=== PATIENT | female | born 1960 | race Caucasian/White ===

== ENCOUNTER 2023-04-14 05:55 | Emergency (ER) | payer BC, SELFPAY ==
[2023-04-14 05:59] VITALS: BP 188/88
[2023-04-14 06:39] VITALS: BMI 35.7
--- NOTE | 2023-04-14 07:26 | ED.GENMED ---
History of Present Illness
General
Chief Complaint: Musculo-Skeletal Complaint
Source: patient
Exam Limitations: none
Time Seen by Provider: 04/14/23 07:01
Nursing documentation reviewed up to this point in time: agreed with
Travel History
Have you had any contact with someone who has COVID-19?: No
Do you have any symptoms of coronavirus? Fever > 100 degrees, chills, cough, shortness of breath, sore throat, loss of taste or smell, muscle aches, or headache?: No
History of Present Illness
History of Present Illness:
63-year-old female present with history of A-fib currently on Eliquis, hypertension presenting to the emergency department today with concerns of left-sided knee discomfort over the past 4 days or so. Has had previous right-sided meniscus injury
and has been limping and favoring her left side. She believes this is what has caused ongoing discomfort now with some swelling to the left knee. Denies redness warmth denies systemic symptoms fevers nausea vomiting.
Past History
Past History
ED Past Medical History: Arrthythmia (Atrial fibrillation), HTN, Hypercholesterolemia and Other (Palpitations)
ED Past Surgical History: Appendectomy and
Social History
Tobacco: Non-smoker
Alcohol: None
Drug: None
Personal:
Living: with family
Employment: Employed
Family History
Family History: CAD
Review of Systems
Review of Systems
Allergies reviewed?: Yes
All Other Systems: ROS reviewed and negative except as documented in HPI and ROS
Phy Exam
Physical Exam
Physical Exam:
GENERAL: Alert , in no apparent distress
EYE: pupils equal and reactive
NECK: Supple, no significant adenopathy.
ENT: o/p clr, mmm.
CARDIAC: Regular rate and rhythm .
LUNGS: Clear breath sounds bilaterally, no acute respiratory distress, no wheezes/rales/rhonchi
ABDOMEN: Soft, without focal tenderness, no r/g, no cvat
NEUROLOGICAL: Alert and oriented, no focal neuro deficits
SKIN: Warm and dry, skin intact.
MUSCULOSKELETAL: Mild swelling to the left knee mainly prepatellar. Good range of motion to at least 60 degrees of flexion able to fully extend. No redness no warmth no distal abnormalities normal ankle examination able to move the hip normally,
well perfused.
PSYCH: Normal and appropriate interaction.
Course
Orders/Labs/Results
Orders:
Orders
04/14/23 07:26
Ice Pack-Treatment DIRECTED
Location: left knee pain
CR Knee - Left 4 Or More View* Urgent
Comment:
Reason For Exam: knee pain
04/14/23 09:14
Brad Wrap Left-Treatment ONCE
Walker [Treatment- Walker] ONCE
Vital Signs
Initial and Last Documented VS:
Initial Vital Signs
Temp Pulse Resp Pulse Ox
98.4 F 72 22 98
04/14/23 05:57 04/14/23 05:57 04/14/23 05:57 04/14/23 05:57
Last Documented Vital Signs
Temp Pulse Resp BP Pulse Ox
98.4 F 68 16 136/69 100
04/14/23 05:57 04/14/23 07:30 04/14/23 07:30 04/14/23 07:30 04/14/23 07:30
MDM/Problems Addressed
MDM/Problems Addressed:
63-year-old female presenting to the emergency department today with concerns of left-sided knee pain over the past few days. She claims that this is likely due to to her favoring her leg due to a known right-sided meniscus injury. She does see an
orthopedic doctor for this. Having trouble ambulating also trouble sleeping secondary to pain. She has been taking Tylenol at home for this without relief. No evidence of infection seems to be a mechanical knee discomfort likely from favoring the
left side. X-ray showing severe arthritis. Patient was recommended to RICE and otherwise follow-up with orthopedics. Return precautions given. Also was given a walker to help facilitate ambulation.
*Critical Care Note
Total Time (30-74mins, 75-104mins- exclusive of procedures): Not Applicable
ED Attending Note
-
Portions of this chart may have been created with voice recognition software.� Occasional wrong word or��sound alike� substitutions may have occurred due to the inherent limitations of voice recognition software.
Discharge Plan
Departure
Patient Disposition: Home (Routine Discharge)
Date of Disposition: 04/14/23
Time of Disposition: 09:15
Patient with high blood pressure during this ER visit?: No
Condition: Good
Covid-19: Not Applicable
Discharge Problem:
Osteoarthritis of left knee
Instructions: Knee Sprain (DC)
Prescriptions:
New
oxycodone 5 mg tablet
5 mg PO Q8H PRN (Reason: Pain) Qty: 7 0RF
No Action
sotalol 80 MG tablet
120 mg PO BID
alprazolam 0.25 MG tablet
0.25 mg PO PRN PRN (Reason: anxiety)
diltiazem HCl [Cartia XT] 180 MG capsule,extended release 24hr
180 mg PO DAILY
diltiazem HCl 60 MG tablet
60 mg PO BID PRN (Reason: afib)
losartan 50 MG tablet
100 mg PO DAILY
ascorbic acid (vitamin C) [Vitamin C] 1,000 MG tablet
1,000 mg PO DAILY
omega 5-dti-hyv-fish oil [Fish Oil] 1 EACH capsule
1 ea PO DAILY
Eliquis 5 MG tablet
5 mg PO BID Qty: 60 0RF
Referrals:
Javier Meredith DO [Family Provider] -
Activity Restrictions/Additional Instructions:
You came to the emergency department today with concerns of left-sided knee discomfort. Here you are found to have significant arthritis on x-ray. Please rest ice compress and elevate over the next few days with hopeful improvement of symptoms.
Please use the walker as needed to help offload weight. Otherwise please follow-up closely with your orthopedic doctor. Return to the emergency department for any worsening, new or concerning symptoms.
Interventions
Interventions:
*Risk Screen - Suicide Last Done: 04/14/23 05:57
*General Assessment Last Done: 04/14/23 06:40
*Neglect/Abuse Screening Last Done: 04/14/23 05:57
ED- Fall Risk Assessment Last Done: 04/14/23 06:41
*ED COVID-19 Vaccine History Last Done: 04/14/23 06:39
ED-Musculoskeletal Assessment Last Done: 04/14/23 06:41
[2023-04-14 07:30] VITALS: BP 136/69
[2023-04-14 09:39] VITALS: BP 141/77
== END 2023-04-14 09:47 | disposition home or self-care (01) ==
LOC: EMR 05:55
PROVIDERS: EMERGENCY PHYSICIAN Emergency Medicine; FAMILY PHYSICIAN Family Medicine
DX: M17.12 Unilateral primary osteoarthritis, left knee (principal); I48.91 Unspecified atrial fibrillation; Z79.01 Long term (current) use of anticoagulants; I10 Essential (primary) hypertension
CPT/HCPCS: 99283; 73564

== ENCOUNTER 2024-01-13 04:34 | Emergency (ER) | payer SELFPAY ==
[2024-01-13 04:37] VITALS: BP 145/75
[2024-01-13 04:41] VITALS: BP 145/75
[2024-01-13 05:00] VITALS: BP 122/74
--- NOTE | 2024-01-13 05:26 | ED.GENMED ---
History of Present Illness
General
Chief Complaint: Flank Pain
Source: patient
Exam Limitations: none
Time Seen by Provider: 01/13/24 04:57
Nursing documentation reviewed up to this point in time: agreed with
History of Present Illness
History of Present Illness:
Patient currently receiving physical therapy secondary to herniated disc at the level of L5, presents to ED secondary to sudden onset of left mid back/flank pain over the past 3 days. Denies direct trauma. Denies nausea or vomiting. Denies fever
or chills. Denies coughing. Denies shortness of breath. Pain is worse with movement and with inspiration. Of note, patient who has history of paroxysmal atrial fibrillation on Eliquis, had oral surgery last week. Eliquis was withheld for 2
days, but restarted for 4 days before onset of her symptoms. Denies leg pain or swelling. Denies recent travel. Denies previous history of similar symptoms. Patient states that she had 1 episode of kidney stone 25 years ago, but states that her
symptoms are different
Past History
Past History
ED Past Medical History: Arrthythmia (Atrial fibrillation), HTN, Hypercholesterolemia and Other (Palpitations)
ED Past Surgical History: Appendectomy and
Social History
Tobacco: Non-smoker
Alcohol: None
Drug: None
Personal:
Living: with family
Employment: Employed
Family History
Family History: CAD
Review of Systems
Review of Systems
Allergies reviewed?: Yes
All Other Systems: ROS reviewed and negative except as documented in HPI and ROS
Constitutional: Reports no symptoms
Respiratory: Reports no symptoms
Cardiac: Reports no symptoms
ABD/GI: Reports no symptoms; Denies nausea, vomiting or diarrhea
: Reports flank pain
Musculoskeletal: Reports back pain
Skin: Reports no symptoms
Neurological: Reports no symptoms
Phy Exam
Physical Exam
Physical Exam:
Physical Exam
General: mild painful distress, not acutely ill. afebrile
Head: nc/at. eomi
Neck: supple. no meningeal signs.
Heart: s1/s2 regular rate and rhythm, no murmur. equal radial pulses.
Lungs: no acute respiratory distress. clear bilaterally
Abdomen: normal bowel sounds. not tender.
Back: mild left midback tenderness to palpation at level of T7-8, without midline tenderness/deformity
Neuro: alert and oriented. no focal neurological deficits
Skin: no rash
Psychiatric: well kept. interactive and cooperative
Extremities: no edema. no calf tenderness.
Course
Orders/Labs/Results
Orders:
Orders
01/13/24 05:13
Morphine Sulfate 2 mg IV NOW STA
CR Chest - 2 Views Urgent
Comment:
Reason For Exam: left mid/upper back pain
01/13/24 05:37
Complete Blood Count/With Diff Urgent
Comprehensive Metabolic Panel Urgent
D-Dimer Urgent
Magnesium Urgent
01/13/24 06:15
Urinalysis Reflex To Culture Urgent
Date Specimen was Collected: 01/13/24
Time Specimen was Collected: 06:14
01/13/24 06:35
Dexamethasone Sod Phosphate [Decadron] 10 mg IV NOW STA
Abnormal Lab Results
01/13/24
05:37
RBC 4.19 L 10^6/uL
(4.20-5.40)
Hct 36.7 L %
(37.0-47.0)
Neutrophils % 77.2 H %
(42.2-75.2)
Lymphocytes % 15.2 L %
(20.5-51.1)
Glucose 135 H mg/dl
(70-99)
01/13/24 05:37
01/13/24 05:37
Vital Signs
Initial and Last Documented VS:
Initial Vital Signs
Temp Pulse Resp BP Pulse Ox
98.2 F 64 16 145/75 96
01/13/24 04:37 01/13/24 04:37 01/13/24 04:37 01/13/24 04:37 01/13/24 04:37
Last Documented Vital Signs
Temp Pulse Resp BP Pulse Ox
98.2 F 57 16 141/67 98
01/13/24 04:37 01/13/24 07:01 01/13/24 07:01 01/13/24 07:01 01/13/24 07:01
MDM/Problems Addressed
MDM/Problems Addressed:
Patient with an unremarkable workup in ED, including blood work, urinalysis, and chest x-ray. History and exam consistent with reproducible left mid/upper back pain, with associated spasm, likely secondary to musculoskeletal etiology. D-dimer
negative. Patient also reports improvement in symptoms subjectively, with treatment via pain medication. As such, patient will be given 1 dose of steroid, i.e. Decadron IV prior to discharge, along with prescription for short course of pain
medication as well as muscle relaxant. Advised to follow-up with PCP for reevaluation or return to ED with worsening symptoms. Patient expresses understanding at time of discharge.
*Critical Care Note
Total Time (30-74mins, 75-104mins- exclusive of procedures): Not Applicable
ED Attending Note
-
Portions of this chart may have been created with voice recognition software.� Occasional wrong word or��sound alike� substitutions may have occurred due to the inherent limitations of voice recognition software.
Discharge Plan
Departure
Patient Disposition: Home (Routine Discharge)
Date of Disposition: 01/13/24
Time of Disposition: 06:53
Patient with high blood pressure during this ER visit?: Yes
Discharge Problem:
Back pain
Instructions: Upper Back Pain (DC), Exercises for Upper Back Pain
Prescriptions:
New
oxycodone-acetaminophen [Percocet] 5-325 mg Tablet
1 tab PO Q6HPRN PRN (Reason: pain) Qty: 12 0RF
diazepam [Valium] 2 mg tablet
2 mg PO TID PRN (Reason: muscle spasm) Qty: 7 0RF
No Action
sotalol 80 MG tablet
120 mg PO BID
alprazolam 0.25 MG tablet
0.25 mg PO PRN PRN (Reason: anxiety)
diltiazem HCl [Cartia XT] 180 MG capsule,extended release 24hr
180 mg PO DAILY
diltiazem HCl 60 MG tablet
60 mg PO BID PRN (Reason: afib)
losartan 50 MG tablet
100 mg PO DAILY
ascorbic acid (vitamin C) [Vitamin C] 1,000 MG tablet
1,000 mg PO DAILY
omega 4-wpm-rpj-fish oil [Fish Oil] 1 EACH capsule
1 ea PO DAILY
Eliquis 5 MG tablet
5 mg PO BID Qty: 60 0RF
Referrals:
UNKNOWN - PT DOES,NOT KNOW [Family Provider] -
Activity Restrictions/Additional Instructions:
As discussed, please follow-up with your primary care physician for reevaluation. Your prescriptions have been sent electronically to [facility] pharmacy in [place].
Interventions
Interventions:
*Risk Screen - Suicide Last Done: 01/13/24 04:37
*General Assessment Last Done: 01/13/24 04:37
*Neglect/Abuse Screening Last Done: 01/13/24 04:37
ED- Fall Risk Assessment Last Done: 01/13/24 04:37
*ED COVID-19 Vaccine History Last Done: 01/13/24 04:37
*Nursing Disposition Last Done: 01/13/24 07:33
ZB-Tsnsrd-Tvgixaeovp Assessment Last Done: 01/13/24 04:51
ED-Female Genitourinary Assessment Last Done: 01/13/24 04:51
Discharge Date and Time
Discharge Date/Time: 01/13/24 07:34
Print Language: CHADIAN
[2024-01-13] MEDS: MORPHINE SULFATE 2 MG IV (05:42)
[2024-01-13 05:45] LABS: % Basophils 0.5 % (0-2); % Eosinophils 0.9 % (0-6); % Immature Granulocytes 0.3 % (0-0.5); % Lymphocytes 15.2 % (20.5-51.1); % Monocytes 5.9 % (1.7-9.3); % Neutrophils 77.2 % (42.2-75.2); Absolute Eosinophils 0.1 10^3/uL (0-0.7); Absolute Lymphocytes 1.2 10^3/uL (1.2-3.4); Absolute Monocytes 0.5 10^3/uL (0.1-0.6); Hematocrit 36.7 % (37.0-47.0); Hemoglobin 12.5 g/dL (12.0-16.0); Mean Corp Hgb Conc. 34.1 g/dL (33.0-37.0); Mean Corpuscular Hgb 29.8 pg (27.0-31.0); Mean Corpuscular Volume 87.6 fL (81.0-99.0); Mean Platelet Volume 9.4 fL (7.4-10.4); Nucleated Red Blood Cells % 0 %; Platelet Count 312 10^3/uL (130-400); Red Blood Cell Count 4.19 10^6/uL (4.20-5.40); Red Cell Dist. Width 12.5 % (11.5-14.5); White Blood Cell Count 7.8 10^3/uL (4.8-10.8)
[2024-01-13 05:56] LABS: ALT (SGPT) 16 U/L (0-35); AST (SGOT) 19 U/L (14-36); Albumin 4.1 g/dl (3.5-5.0); Alkaline Phosphatase 71 U/L (38-126); Blood Urea Nitrogen 16 mg/dl (7-17); Carbon Dioxide 28 mmol/L (22-30); Chloride 102 mmol/L (98-107); Glucose 135 mg/dl (70-99); Magnesium 1.8 mg/dl (1.6-2.3); Potassium 4.3 mmol/L (3.5-5.1); Sodium 143 mmol/L (135-145); Total Bilirubin 0.5 mg/dl (0.2-1.3); Total Protein 6.5 g/dl (6.3-8.2); eGFR > 60.00
[2024-01-13 06:14] VITALS: BP 141/64
[2024-01-13 06:30] LABS: D-Dimer 0.34 ug/mlFEU (0.00-0.50)
[2024-01-13 06:49] LABS: Urine Albumin Negative (Neg - Trace); Urine Bilirubin Negative (Negative); Urine Character Clear (Clear); Urine Color Yellow; Urine Glucose Negative (Negative); Urine Ketone Negative (Negative); Urine Leukocyte Negative (Negative); Urine Nitrite Negative (Negative); Urine Occult Blood Negative (Negative); Urine Urobilinogen Negative (Neg - 1+)
[2024-01-13] MEDS: DECADRON 10 MG IV (07:00)
[2024-01-13 07:01] VITALS: BP 141/67
== END 2024-01-13 07:34 | disposition home or self-care (01) ==
LOC: EMR 04:34
PROVIDERS: EMERGENCY PHYSICIAN Emergency Medicine
DX: M54.9 Dorsalgia, unspecified (principal); I48.0 Paroxysmal atrial fibrillation; I48.91 Unspecified atrial fibrillation; I10 Essential (primary) hypertension; E78.00 Pure hypercholesterolemia, unspecified; Z79.01 Long term (current) use of anticoagulants; Z82.49 Family history of ischemic heart disease and other diseases of the circulatory system; Z87.442 Personal history of urinary calculi; Z90.49 Acquired absence of other specified parts of digestive tract
CPT/HCPCS: 99283; 96374; 96375; 71046; 80053; 81003; 83735; 85025; 85379

== ENCOUNTER 2024-03-11 22:35 | Observation (INO) | payer SELFPAY ==
[2024-03-11 18:55] VITALS: BP 154/70
[2024-03-11 19:00] VITALS: BP 139/57
[2024-03-11 19:01] VITALS: BMI 32.2
[2024-03-11] MEDS: MORPHINE SULFATE 4 MG IV (19:22)
[2024-03-11 19:30] LABS: % Basophils 0.4 % (0-2); % Eosinophils 0.9 % (0-6); % Immature Granulocytes 0.3 % (0-0.5); % Lymphocytes 15.6 % (20.5-51.1); % Monocytes 5.4 % (1.7-9.3); % Neutrophils 77.4 % (42.2-75.2); Absolute Eosinophils 0.1 10^3/uL (0-0.7); Absolute Lymphocytes 1.5 10^3/uL (1.2-3.4); Absolute Monocytes 0.5 10^3/uL (0.1-0.6); Absolute Neutrophils 7.2 10^3/uL (1.4-6.5); Hematocrit 38.8 % (37.0-47.0); Hemoglobin 13.4 g/dL (12.0-16.0); Mean Corp Hgb Conc. 34.5 g/dL (33.0-37.0); Mean Corpuscular Hgb 29.6 pg (27.0-31.0); Mean Corpuscular Volume 85.8 fL (81.0-99.0); Mean Platelet Volume 9.5 fL (7.4-10.4); Nucleated Red Blood Cells % 0 %; Platelet Count 304 10^3/uL (130-400); Red Blood Cell Count 4.52 10^6/uL (4.20-5.40); Red Cell Dist. Width 11.9 % (11.5-14.5); White Blood Cell Count 9.3 10^3/uL (4.8-10.8)
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
[2024-03-11 19:46] LABS: Blood Urea Nitrogen 23 mg/dl (7-17); Calcium 9.5 mg/dl (8.4-10.2); Carbon Dioxide 30 mmol/L (22-30); Chloride 99 mmol/L (98-107); Estimated Creatinine Clearance 82 ml/min; Glucose 128 mg/dl (70-99); Potassium 3.9 mmol/L (3.5-5.1); Sodium 139 mmol/L (135-145); eGFR > 60.00
[2024-03-11 20:36] VITALS: BP 136/67
[2024-03-11 20:59] LABS: Erythrocyte Sed Rate 20 mm/hour (0-20)
[2024-03-11 21:00] VITALS: BP 133/63
--- NOTE | 2024-03-11 21:17 | W.PN.UPDATE ---
Update Note
Progress Note Update
This is an addendum to H&P written by [employer] Marcy Paz
I saw and examined the patient.
The [employer]'s note was reviewed and I agree with the note.
Comment:
Ms. Nery Romero is a 63 yo woman with hx atrial fibrillation, HTN, anxiety presents to the ER with acute right knee pain, unable to ambulate. Patient lives alone.
Triage VS: T 98.1, P 66, BP 139/57, SpO2 98%
LABS: WBC 9.3, Hg 13.4, PLT 304, Na 139, K+ 3.9, Cl 99, BUN 23, Cr 0.7, Glucose 128, ESR 20; CRP 5
On exam patient is anxious, Chest clear, CV: S1, S2. She has pain with active and passive flexion of her right knee. No erythema, warmth or swelling surrounding knee.
Femur X-Ray
Tibia/Fibula X-Ray
Knee X-Ray
IMPRESSION:
No acute fracture or dislocation. Joint spaces are well-maintained. Soft tissues are grossly unremarkable. Mild to moderate degenerative changes of the right hip and knee. Small suprapatellar knee joint effusion. Soft tissues are grossly
unremarkable.
Acute Right knee pain
-patient describes pain extending above and below
-above imaging without acute fracture, may be related to arthritis
-will obtain hip x-ray in case there is referred pain
-lidocaine patch, oxy PRN
-PT/OT
-team to consider touching base with ortho tomorrow if pain persists
Atrial fibrillation
-[employer] home regimen
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
[2024-03-11] MEDS: FLUSH (NSS) 1 FLUSH IV (21:49)
[2024-03-11 22:00] VITALS: BP 129/59
[2024-03-11 22:55] VITALS: BP 146/66
--- NOTE | 2024-03-11 23:15 | PTCARENOTE ---
Addendum entered by Jodee Martel RN 03/12/24 00:46:
Patient takes Cozaar 50 at home. Changed in home med list. Updated MEGAN Martinez.
Addendum entered by Jodee Martel RN 03/12/24 00:40:
Medicated with oxycodone for knee pain/ Tylenol for GILLIS. Explained to patient that we have to Head to toe skin check on admission. Patient is still refusing at this time.
Original Note:
Received patient from ER. stable vitals. c/o headache/ right knee pain. Refused to be turned as patient having severe knee pain. also patient is upset that' room mate coughing/ worried about infection'. [employer] made aware that patient wants a
different room. Reassured patient. Given mask/ earplugs as per request. Assessment done. POC reviewed with patient
[2024-03-11 23:20] VITALS: BMI 32.2
[2024-03-11] MEDS: TYLENOL 650 MG PO (23:50)
[2024-03-11] MEDS: ROXICODONE 5 MG PO (23:50)
[2024-03-12] MEDS: ROXICODONE 5 MG PO (03:57)
[2024-03-12 04:18] VITALS: BMI 30.8
[2024-03-12 07:33] VITALS: BP 161/68
[2024-03-12] MEDS: LIDOCAINE 4% PATCH 1 PATCH TOPICAL (08:01)
[2024-03-12] MEDS: ELIQUIS 5 MG PO ×2 (08:02→19:43)
[2024-03-12] MEDS: BETAPACE 120 MG PO ×2 (08:03→19:43)
[2024-03-12] MEDS: COZAAR 50 MG PO (08:04)
[2024-03-12] MEDS: CARDIZEM CD 180 MG PO ×2 (08:04→19:43)
[2024-03-12] MEDS: TYLENOL 650 MG PO ×2 (08:07→17:18)
[2024-03-12] MEDS: XANAX 0.25 MG PO (10:00)
[2024-03-12 11:30] VITALS: BP 120/57
--- NOTE | 2024-03-12 13:48 | CM ---
Addendum entered by Vira Barrera RN 03/12/24 13:57:
Cm called admissions to update on patient's insurance information.
Original Note:
CM met with patient in room. Patient confirmed demographics. Patient lives independently. Patient denies history of VN ro DME. [facility]. Patient is active with her PCP. Patient uses [facility]
Patient stated that her stay would be covered under [employer]:
[employer]
Janice Singh
[phone]
Claim Number
[id number]
Patient further stated that she has Medicare, but does not have the current card .
CM will await PT evaluation for further discharge planning efforts.
[2024-03-12 15:00] VITALS: BP 140/57
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
[2024-03-12 19:00] VITALS: BP 130/60
--- NOTE | 2024-03-12 19:33 | PTCARENOTE ---
Pt c/o R knee and groin pain intermittently throughout the day. Pt taking Tylenol, refusing to take Oxycodone. Pt would not attempt to ambulate w/ PT or OT.
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
[2024-03-12 23:00] VITALS: BP 137/66
[2024-03-13] VITALS (8 sets, daily range): BP systolic 113–138; BP diastolic 47–72; PULSE 67; O2SAT 99
[2024-03-13] MEDS: TYLENOL 1000 MG PO ×4 (00:08→21:31)
[2024-03-13] MEDS: BETAPACE PO (08:28)
[2024-03-13] MEDS: ELIQUIS 5 MG PO ×2 (08:29→20:13)
[2024-03-13] MEDS: CARDIZEM CD 180 MG PO (08:30)
[2024-03-13] MEDS: LIDOCAINE 4% PATCH TOPICAL (08:30)
[2024-03-13] MEDS: COZAAR 50 MG PO (08:30)
[2024-03-13] MEDS: BETAPACE 120 MG PO ×2 (08:36→20:13)
[2024-03-13 10:05] LABS: Hematocrit 40.4 % (37.0-47.0); Mean Corp Hgb Conc. 34.7 g/dL (33.0-37.0); Mean Corpuscular Hgb 29.5 pg (27.0-31.0); Mean Corpuscular Volume 85.1 fL (81.0-99.0); Mean Platelet Volume 9.7 fL (7.4-10.4); Platelet Count 321 10^3/uL (130-400); Red Blood Cell Count 4.75 10^6/uL (4.20-5.40); Red Cell Dist. Width 11.9 % (11.5-14.5); White Blood Cell Count 5.9 10^3/uL (4.8-10.8)
--- NOTE | 2024-03-13 10:15 | W.PN.UPDATE ---
Update Note
Progress Note Update
Patient seen and evaluated by Orthopedic surgery this morning. She is a 63-year-old female admitted for ambulatory dysfunction. Complains of pain about the right knee with weightbearing and range of motion. She denies any back pain or hip/groin
pain. She denies any paresthesias. Denies any history of Gout. Labs reveal normal WBC. Afebrile. Plain radiographs of the hip, femur, knee and tib-fib negative for occult fracture; degenerative changes of the right hip and knee noted. On
Eliquis for A-fib and cannot take NSAIDs. Unable to tolerate PT/OT. Patient not interested in trial of oral steroids as she is concerned that it may aggravate her A-fib. She is requesting MRI of the right knee.
PE: Physical examination of the right lower extremity does not feel any obvious deformity, erythema, warmth, or ecchymosis. No hip/groin pain with logroll. No significant effusion about the right knee. Skin intact. Lidocaine patch in place. ROM
0 to 80 degrees with pain. Able to perform SLR. No obvious instability with varus and valgus stress testing. Negative Shahana. Mild medial and lateral joint line tenderness. Tenderness to palpation over the anterior thigh and quadriceps. She
reports diffuse pain about the right knee, although points to the anterior aspect of her right knee during examination. Calf is soft and nontender to palpation. Able to plantarflex and dorsiflex right ankle. NVI distally.
Plan: Will proceed with MRI of the right knee without contrast for further evaluation and to rule out internal derangement/insufficiency fracture. Order for MRI placed. Recommend offloading right lower extremity with assistive device. Pain control
per primary team. Orthopedic surgery will continue to follow.
[2024-03-13] MEDS: LIDOCAINE 4% PATCH 1 PATCH TOPICAL (13:12)
--- NOTE | 2024-03-13 14:03 | W.PN.HOSP.TC ---
Today's Communication/Plan
-
await ortho input re: MRI
Assessment / Plan
Assessment / Plan
pt is a 63 year old female
Ambulatory dysfunction--significant knee pain without trauma--no acute findings on x-ray--MRI positive for medial meniscus posterior horn tear, tricompartment arthritis, joint effusion, loose body--await MRI--pt refusing to use walker (says it takes
away her independence)--pt also refusing to take oxycodone (unless she absolutely has to take it)--cont lidoderm patch, standing tylenol
Essential hypertension--Continue losartan
paroxysmal Atrial fibrillation--Continue diltiazem, sotalol, Eliquis
Hyperlipidemia--diet controlled
Anxiety--cont xanax, might need increased dose
code status--FULL CODE
DVT proph--eliquis
Anticipated Discharge: > 48 hours
Subjective/Interval History
-
Date of Service: March 13, 2024
pt unhappy with her knee pain--returned from MRI
Objective Data
-
Labs:
Laboratory Results
03/13/24
09:22
WBC 5.9
Hgb 14.0
Hct 40.4
Plt Count 321
Vital Signs:
max temp for 24 hours
03/12/24
23:00
Temp 98.0 F
Vital Signs
Temp Pulse Resp BP Pulse Ox
97.9 F 61 16 129/58 99
03/13/24 11:15 03/13/24 11:15 03/13/24 11:15 03/13/24 11:15 03/13/24 11:15
I&O
03/12/24 03/13/24 03/14/24
06:59 06:59 06:59
Intake Total 730 / 730
Balance 730 / 730
Review of Systems
-
All other systems: Reviewed and negative
Musculoskeletal: Reports Joint Pain (right knee)
Physical Exam
-
General: Well Developed, Well Nourished and Pain
HEENT: Normocephalic and Atraumatic; Negative Oxygen
Respiratory: Clear to Auscultation; Negative Wheezes or Rhonchi
Cardiac: Regular Rhythm and S1/S2; Negative Murmur
GI: Soft, Nontender, Nondistended and Normal Bowel Sounds
Musculoskeletal: No Clubbing, No Cyanosis, No Edema and Other (right knee swollen--pt able to move it back and forth on the bed--lidoderm patch in place)
Neuro: Awake and Alert
Psych: Calm
--- NOTE | 2024-03-13 15:13 | CHAP ---
Visited Nery at 10am - she shared her feelings of frustration and discouragement. We talked about her goals, and prayed together. Emotional and spiritual support provided.
--- NOTE | 2024-03-13 20:43 | W.PN.UPDATE ---
Update Note
Progress Note Update
Patient has order of diltiazem 180mg bid that she requested to change. Per patient, cardiology/outpatient adjusted Diltazem dose to 180mg in am and 120 mg q pm. Order adjusted.
[2024-03-13] MEDS: CARDIZEM CD PO (20:56)
[2024-03-13] MEDS: CARDIZEM CD 120 MG PO (21:34)
[2024-03-13] MEDS: XANAX 0.25 MG PO (22:41)
--- NOTE | 2024-03-13 23:01 | PTCARENOTE ---
Pt on the call sierra expressing concerns with residing in a semi-private room. Pt states it's 'against all isolation policies and we're currently in the middle of a norovirus outbreak'. Pt has been in the same semi-private for >24 hours. Pt states
she wants to sign out AMA. Notified nursing supervisor powder and primer canning who responded bedside to address pt concerns. Pt reports to the nursing supervisor [employer]ning 'I'm fine, I didn't ask her to call you, she called on her own'.
While reviewing 2000 scheduled medications, pt states she does not take the ordered 180mg Diltiazem HS, she only takes 120mg Diltiazem HS at home. Pt's home medication list in the chart lists 180mg Diltiazem BID, asked pt if she brought a medication
list with her to the hospital, pt states 'no, I know my medications and I didn't lie to them'. Pt reports she follows with Dr. Torrez for cardiology, states 'Dr. Torrez is going to freak out on you when he finds out I've been taking 180mg Diltiazem at
night'.
Pt reporting 10/10 R knee pain; next dose of scheduled Tylenol was not for ~4 hours, pt declined ordered PRN Oxycodone because she 'tries to stay away from narcotics, she doesn't like the way they make her feel'. Pt states she cannot have Toradol
because she has Afib. When asked if pt has ever had to take something other than Tylenol/Motrin at home for pain, pt states she's used Tramadol before with positive effect.
Discussed pt's multiple complaints/concerns with covering INDUSTRIAL SECURITY ANALYST. Pt on telemetry, NSR HR 59-62, BP at the time 116/63. Covering INDUSTRIAL SECURITY ANALYST recommendation for skipping PM dose of Diltiazem tonight, giving next scheduled dose of Tylenol early and retaking
pt's vitals in 1-2 hours to assess if stable enough for Tramadol dose. Discussed this recommendation with pt; pt states 'I cannot go without my Diltiazem tonight, I won't do it, I'll go into Afib and I really don't want to go into Afib'. Thorough
education provided to pt on her cardiac medication regimen and the effects on pt's VS (HR & BP). Discussed pt options again with covering INDUSTRIAL SECURITY ANALYST, including pt refusal to go without Diltiazem for the night. Covering INDUSTRIAL SECURITY ANALYST spoke with pharmacy who
confirmed pt had picked up Rx for 180mg Diltiazem in December and also an Rx for 120mg Diltiazem in January. Risks discussed with pt and INDUSTRIAL SECURITY ANALYST, pt insistent on taking 120mg Diltiazem this evening, order changed by covering INDUSTRIAL SECURITY ANALYST to represent pt's
home medication list, 120mg Diltiazem administered, see MAR. BP stable at 139/69, HR 60. Pt agreeable to go without Tramadol for pain control at this time, Tylenol administered early as discussed with covering INDUSTRIAL SECURITY ANALYST, see MAR. Assisted pt to elevate
the affected leg on pillows, provided pt with an ice pack for pain control.
All of pt complaints/concerns addressed at this time, pt resting comfortably in bed watching a TV show on her phone.
[2024-03-14 03:33] VITALS: BP 122/65
[2024-03-14] MEDS: XANAX 0.25 MG PO ×3 (05:08→21:39)
[2024-03-14 07:56] VITALS: BP 139/85
[2024-03-14] MEDS: TYLENOL 1000 MG PO ×2 (08:52→15:16)
[2024-03-14] MEDS: CARDIZEM CD 180 MG PO (08:53)
[2024-03-14] MEDS: COZAAR 50 MG PO (08:53)
[2024-03-14] MEDS: ELIQUIS 5 MG PO ×2 (08:53→21:23)
[2024-03-14] MEDS: BETAPACE 120 MG PO ×2 (08:54→21:19)
[2024-03-14] MEDS: LIDOCAINE 4% PATCH TOPICAL (09:02)
--- NOTE | 2024-03-14 10:01 | W.PN.UPDATE ---
Update Note
Progress Note Update
The patient was seen and evaluated by Orthopedic surgery this morning. Right knee MRI was reviewed with Dr. Sanders. MRI was thoroughly reviewed with the patient.
Right Knee MRI impression:
1) Medial meniscus posterior horn tear.
2) Tricompartment arthritis. Full-thickness degenerative articular cartilage wear. Joint margin osteophyte formation. Mild medial tibial plateau subchondral edema.
- Further evaluation of the articular cartilage reveals: There is advanced full-thickness degenerative articular cartilage wear involving large portion of the central weightbearing surface of the medial femoral condyle. There is also associated
full-thickness degenerative articular cartilage wear of the medial tibial plateau. Mild to moderate medial joint marginal osteophyte formation. Moderate degenerative irregular articular cartilage wear involving the lateral femoral condyle lateral
tibial plateau central weightbearing surface. Moderate lateral femoral condyle osteophyte. Severe patellofemoral joint space narrowing with full-thickness degenerative articular cartilage wear along the lateral patellar facet and lateral femoral
trochlear groove.
3) Joint effusion. Synovitis. Loose bodies. Popliteus tendon tenosynovitis.
PE: Physical examination of the right knee does not reveal any obvious deformity, erythema, warmth, or ecchymosis. Skin intact. Clinically, no significant effusion appreciated. Range of motion 0 to 90 degrees with pain. Positive medial joint
line tenderness. Mild lateral joint line tenderness. Discomfort with patellofemoral grind. I do not appreciate any obvious instability of the cruciates or collaterals at 0 and 30 degrees. No hip/groin pain with ROM. Calf is soft and nontender
to palpation. Able to plantarflex and dorsiflex right ankle. NVI distally.
Treatment options were discussed with the patient today at length. We discussed treatment options for osteoarthritis including but not limited to oral anti-inflammatories (which she is unable to take due to Eliquis), bracing, physical therapy
(which she has been unable to tolerate due to knee pain), intra-articular corticosteroid injection, and surgical treatment if conservative treatment fails. After thorough discussion, shared decision was to proceed with a RIGHT knee intra-articular
corticosteroid injection.
Procedure: After obtaining verbal consent, and confirming laterality, the patient's RIGHT knee was sterilely prepped with alcohol and was provided with an intra-articular corticosteroid injection consisting of 40 mg of Kenalog and 4 cc of 0.25%
Marcaine without complication. Band-Aid was applied. Post-injection protocol was discussed. Ice applied to right knee.
I am hopeful that today's injection provides great symptom relief. As discussed, she may always follow-up with our practice as an outpatient for further management of her right knee pain. While in house, recommend PT/OT, which will hopefully be
better tolerated after today's injection. All questions were answered.
Orthopedic surgery will continue to follow along at this time.
[2024-03-14] MEDS: ROXICODONE 5 MG PO ×2 (10:14→15:16)
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
[2024-03-14 11:15] VITALS: BP 137/63
--- NOTE | 2024-03-14 13:10 | CM ---
CM following re: d/c planning.
CM met with pt at bedside. Pt irritable and annoyed immediately, stating she has met with 2 CMs already, stating 'don't you all document??'
CM explained role and advised her CM will continue to see her to discuss safe d/c planning, however, she does not have to talk to this CM if she does not wish to. CM began leaving the room and pt became very tearful, apologizing for her rudeness,
and stating she is dealing with pain in her leg and having a difficulty with adjustment. CM provided emotional support and allowed her to express her frustrations. She does see a therapist and states she has a great rapport with him. CM suggested
support groups, as well, which pt will think upon. She verbalized appreciation.
We discussed therapy, pt states she would prefer in home therapy vs outpatient, as driving is too difficult for her right now. Referral sent to [facility], if pt changes mind, can continue to pursue outpatient.
Goal: home with [facility] vs outpatient therapy.
[2024-03-14 15:32] VITALS: BP 131/67
[2024-03-14 16:13] VITALS: BP 127/57
--- NOTE | 2024-03-14 16:35 | PTCARENOTE ---
Patient accepted as transfer into room 409-02. Vital signs stable. Oriented to room and use of call sierra and tv/bed controls. Patient verbalizes understanding of teaching. Patient verbalized being aware of how to order dinner. Provided with wing
cirs. Patient resting comfortably in bed at this time. Ice pack provided to right knee.
[2024-03-14] MEDS: CARDIZEM CD 120 MG PO (21:24)
[2024-03-14 23:12] VITALS: BP 141/67
[2024-03-15] MEDS: TYLENOL 1000 MG PO ×3 (03:30→17:17)
[2024-03-15 03:40] VITALS: BP 131/66
[2024-03-15 06:49] VITALS: BP 136/52
[2024-03-15 07:37] LABS: Hematocrit 35.7 % (37.0-47.0); Hemoglobin 12.7 g/dL (12.0-16.0); Mean Corp Hgb Conc. 35.6 g/dL (33.0-37.0); Mean Corpuscular Hgb 30.1 pg (27.0-31.0); Mean Corpuscular Volume 84.6 fL (81.0-99.0); Mean Platelet Volume 9.8 fL (7.4-10.4); Platelet Count 323 10^3/uL (130-400); Red Blood Cell Count 4.22 10^6/uL (4.20-5.40); Red Cell Dist. Width 11.6 % (11.5-14.5); White Blood Cell Count 9.7 10^3/uL (4.8-10.8)
[2024-03-15] MEDS: LIDOCAINE 4% PATCH 1 PATCH TOPICAL (08:06)
[2024-03-15] MEDS: ELIQUIS 5 MG PO ×2 (08:06→21:03)
[2024-03-15 08:08] LABS: Blood Urea Nitrogen 20 mg/dl (7-17); Calcium 9.6 mg/dl (8.4-10.2); Carbon Dioxide 30 mmol/L (22-30); Chloride 99 mmol/L (98-107); Estimated Creatinine Clearance 93 ml/min; Glucose 141 mg/dl (70-99); Magnesium 2.1 mg/dl (1.6-2.3); Potassium 4.2 mmol/L (3.5-5.1); Sodium 136 mmol/L (135-145); eGFR > 60.00
[2024-03-15] MEDS: BETAPACE 120 MG PO ×2 (08:09→21:04)
[2024-03-15] MEDS: COZAAR 50 MG PO (08:09)
[2024-03-15] MEDS: ROXICODONE 5 MG PO (08:09)
[2024-03-15] MEDS: CARDIZEM CD 180 MG PO (08:10)
--- NOTE | 2024-03-15 08:55 | W.PN.UPDATE ---
Update Note
Progress Note Update
Nery was seen and evaluated by orthopedics this morning. She was resting comfortably in bed, but does endorse continued pain. She has not noticed any improvement following the cortisone injection yesterday.
Directed exam of the right knee reveals trace effusion compared to contralateral side. No obvious erythema, ecchymosis or lesions. Tenderness along the medial and lateral joint lines. ROM 0-105, pain with flexion. Calf soft and nontender.
Neurovascularly intact distally.
Unfortunately, Nery has not noticed significant improvement following the cortisone injection yesterday. We did discuss that it can take several days to notice the full effect of the injection. Her ROM is improved on exam today, and she was able
to ambulate to the restroom this AM. I am hopeful that her symptoms will gradually improve with time. For now, we will continue with symptomatic management. Pain control prn. Recommend PT/OT while patient in-house. I did encourage her to perform
gentle ROM of her knee to avoid stiffness. She may follow up with our practice on an outpatient basis for continued management.
[2024-03-15 11:00] VITALS: BP 152/75; PULSE 62; O2SAT 98
[2024-03-15] MEDS: XANAX 0.25 MG PO ×2 (12:09→21:04)
--- NOTE | 2024-03-15 13:39 | VNURNOTE ---
Chart reviewed. [facility] liaison spoke with patient to review services. She understands that visits will be 2-3 times per week and that [facility] will call her within a few days after discharge to arrange visits. Attempted to explain homebound status and
review PCP, however pt cut phone call off and hung up. Referral accepted in [facility].
[2024-03-15 15:25] VITALS: BP 160/77
[2024-03-15] MEDS: ULTRAM 50 MG PO ×2 (15:30→22:31)
--- NOTE | 2024-03-15 15:57 | W.PN.HOSP.TC ---
Addendum entered and electronically signed by Colton Shukla MD 03/15/24 23:05:
Attending Addendum-
I saw and evaluated the patient. I reviewed the resident�s note and agree with findings and plan as documented in the resident�s note. Sub: continues to complain of right knee pain and difficulty bearing weight. States cortisone didnt help. Full 12
point ROS reviewed and negative except as documented Exam: Vitals reviewed in chart GEN-NAD heart RRR lungs clear abd soft LE right knee mild parapatellar effusion palpated swollen incereased ROM to 30 degrees incision cdi no redness or warmthpulses
2+ distal pulses
Plan:
#Ambulatory dysfunction/Medial Meniscus Tear
- refusing to bear weight
- MRI knee-Medial meniscus posterior horn tear.Tricompartment arthritis. Full-thickness degenerative articular cartilage wear. Joint margin osteophyte formation. Mild medial tibial plateau subchondral edema.
Joint effusion. Synovitis. Loose bodies. Popliteus tendon tenosynovitis.
- PT/OT evaluation
- Case management
- ortho input appreciated- s/p cortisone injection on 03/14
- pain regimen with tylenol and lido patch- add tramadol
- refusing to go to SNF, c/s PMnR for eval
#benign hypertension
- continue losartan
#atrial fibrillation
- continue diltiazem, Eliquis and sotalol
#hyperlipidemia-not on meds
#anxiety- not on chnoic meds- PDMP reviewed
Dispo await PMnR eval
DVTp-eliquis
Time spent coordinating care, review of plan of care with resident, personally reviewed records in EMR, med rec, consults, notes, labs, radiology, d/w nursing � 52 mins
Original Note:
Today's Communication/Plan
-
.
Assessment / Plan
Assessment / Plan
1. Ambulatory Dysfunction/R Knee Pain
- Willing to do PT today.
- S/p Cortisone shot by Ortho; no improvement; discussed it may take a few days to feel effect
- Patient gets sweats with tylenol; transition to IV Tramadol PRN
- Pending Physiatry Consult
2. Essential hypertension
--Continue losartan
3. paroxysmal Atrial fibrillation
--Continue diltiazem, sotalol, Eliquis
4. Hyperlipidemia
--diet controlled
5. Anxiety
--cont xanax, might need increased dose
code status--FULL CODE
DVT proph--eliquis
Discharge planning: SNF vs Acute Rehab
Anticipated Discharge: Within 24 hours
Subjective/Interval History
-
Date of Service: March 15, 2024
Patient seen and examined while resting in bed. Patient received cortisone shot to right knee yesterday, states that she has not found any relief from it yet. Patient also endorses breaking out into sweats when she takes a dose of her PRN Tylenol.
When discussing discharge options, patient notes she does not want to go to SNF, and would rather go to an Acute Rehab like [facility].
Objective Data
-
Labs:
Laboratory Results
03/15/24
06:19
WBC 9.7
Hgb 12.7
Hct 35.7 L
Plt Count 323
Sodium 136
Potassium 4.2
Chloride 99
Carbon Dioxide 30
BUN 20 H
Creatinine 0.6
Glucose 141 H
Calcium 9.6
Vital Signs:
Vital Signs
Temp Pulse Resp BP Pulse Ox
97.8 F 62 18 136/52 97
03/15/24 06:49 03/15/24 06:49 03/15/24 06:49 03/15/24 06:49 03/15/24 08:30
I&O
03/14/24 03/15/24 03/16/24
06:59 06:59 06:59
Intake Total 480 / 480 240 / 240
Output Total 325 / 325
Balance 480 / 480 -85 / -85
Review of Systems
-
History Source: Patient
Constitutional: Reports No Symptoms
Respiratory: Reports No Symptoms
Cardiac: Reports No Symptoms
Musculoskeletal: Reports Joint Pain
Neuro: Reports Headache
Physical Exam
-
General: Well Developed, Well Nourished and No Apparent Distress
HEENT: Normocephalic and Atraumatic
Respiratory: Clear to Auscultation
Cardiac: Regular Rhythm and S1/S2
GI: Soft, Nontender and Nondistended
Musculoskeletal: No Clubbing, No Cyanosis, No Edema and Other (slight tenderness to the medial joint line, but overall improved from yesterday. Patient able to flex her knee to 90 degrees. Slightly warm, no erythema, mild effusion of the right knee.
)
Skin: Warm and Dry
Neuro: Awake and Alert
Psych: Calm
Data Reviewed
-
Labs: Labs Reviewed by me and Discussed with Patient
[2024-03-15 19:30] VITALS: BP 149/65
[2024-03-15] MEDS: CARDIZEM CD 120 MG PO (21:05)
[2024-03-15 23:30] VITALS: BP 124/58
[2024-03-16] MEDS: TYLENOL PO ×3 (00:30→16:07)
[2024-03-16] MEDS: TYLENOL 1000 MG PO (03:11)
[2024-03-16 03:27] VITALS: BP 117/56
--- NOTE | 2024-03-16 07:43 | W.PN.HOSP.TC ---
Addendum entered and electronically signed by Colton Shukla MD 03/16/24 22:25:
Attending Addendum-
I saw and evaluated the patient. I reviewed the resident�s note and agree with findings and plan as documented in the resident�s note. Sub: continues to complain of right knee pain mildly improved with tramdol. States cortisone didnt help. now
complains if GILLIS worsening when siting up. No other neuro deficits. Full 12 point ROS reviewed and negative except as documented Exam: Vitals reviewed in chart GEN-NAD heart RRR lungs clear abd soft LE right knee mild parapatellar effusion palpated
mild swelling, increased ROM to 30-40 degrees incision cdi no redness or warmth pulses 2+ distal pulses
Plan:
#Ambulatory dysfunction/Medial Meniscus Tear
- difficulty bear weight
- MRI knee-Medial meniscus posterior horn tear.Tricompartment arthritis. Full-thickness degenerative articular cartilage wear. Joint margin osteophyte formation. Mild medial tibial plateau subchondral edema.
Joint effusion. Synovitis. Loose bodies. Popliteus tendon tenosynovitis.
- PT/OT evaluation-home health
- Case management
- ortho input appreciated- s/p cortisone injection on 03/14
- pain regimen with tylenol and lido patch- add oxycodone
- refusing to go to SNF, c/s PMnR for eval
#benign hypertension
- continue losartan
#atrial fibrillation
- continue diltiazem, Eliquis and sotalol
#hyperlipidemia-not on meds
#anxiety- not on chronic meds- PDMP reviewed
Dispo await PMnR eval DC in am to home
DVTp-eliquis
Time spent coordinating care, review of plan of care with resident, personally reviewed records in EMR, med rec, consults, notes, labs, radiology, d/w nursing � 51 mins
Original Note:
Today's Communication/Plan
-
.
Assessment / Plan
Assessment / Plan
1. Ambulatory Dysfunction/R Knee Pain
- PT yesterday, patient tolerated; home PT recommended. PT again today.
- S/p Cortisone shot by Ortho; no improvement; discussed it may take a few days to feel effect
- Patient gets sweats with Tylenol; Tramadol did not help. Will try PRN Oxy, which helped patient earlier in admission.
- Pending Physiatry Consult
2. Essential hypertension
--Continue losartan
3. paroxysmal Atrial fibrillation
--Continue diltiazem, sotalol, Eliquis
4. Hyperlipidemia
--diet controlled
5. Anxiety
--cont xanax, might need increased dose
6. Headache
- Occipital, worse with sitting up or standing.
- See pain medication above.
- Obtain orthostatic vitals.
code status--FULL CODE
DVT proph--eliquis
Discharge planning: SNF vs Acute Rehab vs Home with Home PT
- Patient refusing SNF
Anticipated Discharge: Within 24 hours
Subjective/Interval History
-
Date of Service: March 16, 2024
Patient seen and examined while resting in bed. Patient states that she has headache this morning, described as discomfort, and mainly in the occiput. Patient also complains of dizziness when getting up to standing, described as lightheadedness, as
well as nausea when that occurs. Patient states that she is able to eat and drink properly. Patient endorses not wanting to take Zofran or Reglan. Toradol has not helped, patient requesting to try Oxycodone again.
Patient endorses being able to work with PT yesterday. Has used walker to walk to the bathroom since.
Objective Data
-
Vital Signs:
Vital Signs
Temp Pulse Resp BP Pulse Ox
98.0 F 59 18 117/56 97
03/16/24 03:27 03/16/24 03:27 03/16/24 03:27 03/16/24 03:27 03/16/24 03:27
I&O
03/15/24 03/16/24 03/17/24
06:59 06:59 06:59
Intake Total 240 / 240 600 / 600
Output Total 325 / 325
Balance -85 / -85 600 / 600
Review of Systems
-
History Source: Patient
Constitutional: Reports No Symptoms
Respiratory: Reports No Symptoms
Cardiac: Reports No Symptoms
Abdomen/GI: Reports Nausea
Musculoskeletal: Reports Joint Pain
Neuro: Reports Dizzy and Headache
Physical Exam
-
General: Well Developed and Well Nourished
HEENT: Normocephalic, Atraumatic, Moist Mucous Membranes and Neck Non Tender (supple, no meningeal signs)
Respiratory: Clear to Auscultation
Cardiac: Regular Rhythm
GI: Soft and Nontender
Musculoskeletal: Other (unchanged from yesterday)
Skin: Warm and Dry
Neuro: Awake, Alert and Other
Data Reviewed
-
Labs: Labs Reviewed by me and Discussed with Patient
[2024-03-16 08:19] VITALS: BP 151/84
[2024-03-16] MEDS: ULTRAM 50 MG PO (08:41)
[2024-03-16] MEDS: COZAAR 50 MG PO (08:43)
[2024-03-16] MEDS: BETAPACE 120 MG PO ×2 (08:43→19:49)
[2024-03-16] MEDS: ELIQUIS 5 MG PO ×2 (08:43→19:49)
[2024-03-16] MEDS: LIDOCAINE 4% PATCH 1 PATCH TOPICAL (08:44)
[2024-03-16] MEDS: CARDIZEM CD 180 MG PO (08:44)
[2024-03-16 11:42] VITALS: BP 147/65
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
[2024-03-16 15:53] VITALS: BP 149/66
[2024-03-16] MEDS: ROXICODONE 5 MG PO (16:06)
--- NOTE | 2024-03-16 17:09 | PTCARENOTE ---
Resident notified pt reporting her headache and right knee pain remains 8/10 after PRN Oxy 5mg administration
--- NOTE | 2024-03-16 17:54 | W.PN.UPDATE ---
Update Note
Progress Note Update
Received TT from nurse, patient is s/p one dose of PRN oxycodone 5mg and noted that she still has headache, and now jaw pain. Patient seen and examined while resting comfortably in bed. Patient notes bilateral jaw discomfort in conjunction with her
headache, described as vague. Patient also notes that she feels 'tingly' and is worried that she may be talking too loudly, and just feels 'funny'. She does note however that the medication has markedly improved her knee pain.
Cranial nerves are grossly intact, neck is supple, full ROM with no meningeal signs, patient moving all fours, motor function grossly intact. Patient speaking in full sentences without slurred speech. Jaw is nontender to palpation. Otherwise
pleasant and conversant.
She does note that this in some ways feels similar to when she was given oxycodone earlier in admission and she felt 'loopy'. Explained to the patient that she may be experiencing the euphoric side effect of oxycodone and that the feeling should
resolve as the medication wears off. Patient seems to feel less worried with this reassurance.
[2024-03-16 19:00] VITALS: BP 141/74
[2024-03-16] MEDS: XANAX 0.25 MG PO (21:41)
[2024-03-16] MEDS: CARDIZEM CD 120 MG PO (21:41)
[2024-03-16 23:00] VITALS: BP 124/56
[2024-03-17] VITALS (7 sets, daily range): BP systolic 123–148; BP diastolic 58–86; PULSE 57; O2SAT 98
[2024-03-17] MEDS: TYLENOL PO ×3 (00:10→23:41)
--- NOTE | 2024-03-17 02:43 | DOWNTIME ---
There was a [employer] Client Client Care Consultant Downtime on 03/17/2024 from 0100 to 03/17/2023 at 0205 . Downtime documentation of patient's care, including medication administrations, has been reconciled in the electronic record per guidelines. Refer to the
patient's paper chart under the miscellaneous tab to see printed paper medication records and downtime forms.
[2024-03-17 07:57] LABS: Hematocrit 37.7 % (37.0-47.0); Hemoglobin 12.7 g/dL (12.0-16.0); Mean Corp Hgb Conc. 33.7 g/dL (33.0-37.0); Mean Corpuscular Hgb 29.1 pg (27.0-31.0); Mean Corpuscular Volume 86.3 fL (81.0-99.0); Mean Platelet Volume 9.2 fL (7.4-10.4); Platelet Count 299 10^3/uL (130-400); Red Blood Cell Count 4.37 10^6/uL (4.20-5.40); Red Cell Dist. Width 11.9 % (11.5-14.5); White Blood Cell Count 7.1 10^3/uL (4.8-10.8)
[2024-03-17] MEDS: TYLENOL 1000 MG PO (07:59)
[2024-03-17] MEDS: CARDIZEM CD 180 MG PO (07:59)
[2024-03-17] MEDS: ELIQUIS 5 MG PO ×2 (08:00→19:45)
[2024-03-17] MEDS: BETAPACE 120 MG PO ×2 (08:00→19:45)
[2024-03-17] MEDS: LIDOCAINE 4% PATCH 1 PATCH TOPICAL (08:00)
[2024-03-17] MEDS: COZAAR 50 MG PO (08:00)
[2024-03-17 08:21] LABS: Blood Urea Nitrogen 20 mg/dl (7-17); Calcium 9.1 mg/dl (8.4-10.2); Carbon Dioxide 32 mmol/L (22-30); Chloride 98 mmol/L (98-107); Estimated Creatinine Clearance 93 ml/min; Glucose 112 mg/dl (70-99); Potassium 4.3 mmol/L (3.5-5.1); Sodium 138 mmol/L (135-145); eGFR > 60.00
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
--- NOTE | 2024-03-17 09:14 | W.PN.HOSP.TC ---
Addendum entered and electronically signed by Colton Shukla MD 03/17/24 22:56:
Attending Addendum-
I saw and evaluated the patient. I reviewed the resident�s note and agree with findings and plan as documented in the resident�s note. Sub: tearful. had apparent reaction to oxycodone yesterday. 'i just wanna walk again' Full 12 point ROS reviewed
and negative except as documented Exam: Vitals reviewed in chart GEN-NAD heart RRR lungs clear abd soft LE right knee mild parapatellar effusion palpated minimal swelling, increased ROM to 30-40 degrees incision cdi no redness or warmth pain out of
proportion to exam, tense quads, pulses 2+ distal pulses
Plan:
#Ambulatory dysfunction/Medial Meniscus Tear
- difficulty bearing weight- self limiting
- MRI knee-Medial meniscus posterior horn tear.Tricompartment arthritis. Full-thickness degenerative articular cartilage wear. Joint margin osteophyte formation. Mild medial tibial plateau subchondral edema.
Joint effusion. Synovitis. Loose bodies. Popliteus tendon tenosynovitis.
- PT/OT evaluation-home health
- Case management
- ortho input appreciated- s/p cortisone injection on 03/14
- pain regimen with tylenol and lido patch- dc oxycodone readd trmadol
- start baclofen trial per PMnR- keep overnight
- refusing to go to SNF
- not acute rehab candidate
#benign hypertension
- continue losartan
#atrial fibrillation
- continue diltiazem, Eliquis and sotalol
#hyperlipidemia-not on meds
#anxiety- not on chronic meds- PDMP reviewed should trial antidepressant as OP with PCP
Dispo DC in am to home with [facility] and home PT/OT
DVTp-eliquis
Time spent coordinating care, review of plan of care with resident, personally reviewed records in EMR, med rec, consults, notes, labs, radiology, d/w nursing/pmnr � 51 mins
Original Note:
Today's Communication/Plan
-
.
Assessment / Plan
Assessment / Plan
1. Ambulatory Dysfunction/R Knee Pain
- PT yesterday, patient tolerated; home PT recommended. PT again today.
- S/p Cortisone shot by Ortho; no improvement; discussed it may take a few days to feel effect
- Patient gets sweats with Tylenol; Tramadol did not help. Oxycodone helps but makes the patient loopy.
- Patient seen by Physiatry today; patient is not a candidate for acute care rehab; recommended SNF, however patient refuses SNF. Patient is electing for discharge to home with [facility]/ home PT in lieu of SNF. Dr. Kathleen recommended doing R Ankle XRay
and trial of Baclofen prior to d/c. If patient tolerates, can take Baclofen 5mg TID.
2. Essential hypertension
--Continue losartan
3. paroxysmal Atrial fibrillation
--Continue diltiazem, sotalol, Eliquis
4. Hyperlipidemia
--diet controlled
5. Anxiety
--cont xanax, might need increased dose
6. Headache
- See pain medication above.
code status--FULL CODE
DVT proph--eliquis
Discharge planning: Home with [facility] and Home PT
- Patient refusing SNF
Anticipated Discharge: Today
Subjective/Interval History
-
Date of Service: March 17, 2024
Patient seen and examined while resting comfortably in bed, reading on her phone. Patient endorses continued right knee pain. Notes that the oxycodone did end up helping last night. Only took Tylenol this morning and continues to have pain.
Objective Data
-
Labs:
Laboratory Results
03/17/24
06:39
WBC 7.1
Hgb 12.7
Hct 37.7
Plt Count 299
Sodium 138
Potassium 4.3
Chloride 98
Carbon Dioxide 32 H
BUN 20 H
Creatinine 0.6
Glucose 112 H
Calcium 9.1
Vital Signs:
Vital Signs
Temp Pulse Resp BP Pulse Ox
97.9 F 57 18 122/58 97
03/17/24 07:53 03/17/24 07:59 03/17/24 07:53 03/17/24 07:59 03/17/24 07:53
I&O
03/16/24 03/17/24 03/18/24
06:59 06:59 06:59
Intake Total 600 / 600 240 / 240
Balance 600 / 600 240 / 240
Review of Systems
-
History Source: Patient
Constitutional: Reports No Symptoms
EENT: Reports No Symptoms Reported
Respiratory: Reports No Symptoms
Cardiac: Reports No Symptoms
Abdomen/GI: Reports No Symptoms
Musculoskeletal: Reports Joint Pain (right knee)
[2024-03-17] MEDS: ROXICODONE 5 MG PO (11:56)
--- NOTE | 2024-03-17 13:26 | CM ---
CM continues to follow for discharge planning. Pt has agreed to [facility] services at discharge.
Plan: Discharge to home with [facility]
[2024-03-17] MEDS: LIORESAL 5 MG PO (15:41)
[2024-03-17] MEDS: XANAX 0.25 MG PO (22:26)
[2024-03-17] MEDS: CARDIZEM CD 120 MG PO (22:26)
[2024-03-18 03:29] VITALS: BP 133/71
[2024-03-18 07:40] VITALS: BP 124/52
--- NOTE | 2024-03-18 09:11 | VNURNOTE ---
Home Health Liaison met with patient at bedside to discuss [facility] nurse/therapy, visits, schedule and homebound status. Patient is agreeable- she would like to return to work [employer]. Discussed that Dr will review clearance date to return to work.
Reviewed with patient that once she returns to work, [facility] stops services. Patient verbalized understanding and understands that visits at home will be 2-3 x per week to assess and teach medical management, PT, while homebound. [facility] brochure
provided with contact information. Patient is aware that [facility] will contact them for start of care in 1-2 days after discharge from . [facility] referral accepted in [facility].
[2024-03-18] MEDS: COZAAR 50 MG PO (09:27)
[2024-03-18] MEDS: CARDIZEM CD 180 MG PO (09:27)
[2024-03-18] MEDS: BETAPACE 120 MG PO (09:28)
[2024-03-18] MEDS: LIDOCAINE 4% PATCH 1 PATCH TOPICAL (09:29)
[2024-03-18] MEDS: ELIQUIS 5 MG PO (09:29)
[2024-03-18] MEDS: LIORESAL 5 MG PO (09:35)
[2024-03-18] MEDS: TYLENOL PO (09:38)
--- NOTE | 2024-03-18 09:42 | CM ---
Addendum entered by Gisele Seymour 03/18/24 14:48:
Nery is very anxious about going home, as she does not have a coat, wearing a short sleeve shirt. 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 CM advised that [facility], or
could go to the discharge lounge and then to the [employer] via w/c.
[facility] to follow up with patient at home.
Original Note:
Nery is cleared for d/c today. She has agreed to [facility]N.
Plan: Discharge to home with [facility] today
[2024-03-18 11:18] VITALS: BP 139/71
--- NOTE | 2024-03-18 12:35 | W.PN.HOSP.TC ---
Addendum entered and electronically signed by Colton Shukla MD 03/18/24 22:41:
Attending Addendum-
I saw and evaluated the patient. I reviewed the resident�s note and agree with findings and plan as documented in the resident�s note. Sub: pain improved after baclofen Full 12 point ROS reviewed and negative except as documented Exam: Vitals
reviewed in chart GEN-NAD heart RRR lungs clear abd soft LE right knee mild parapatellar effusion palpated minimal swelling, increased ROM to 50-60 degrees incision cdi no redness or warmth, tense quads, pulses 2+ distal pulses
Plan:
#Ambulatory dysfunction/Medial Meniscus Tear
- difficulty bearing weight- self limiting
- MRI knee-Medial meniscus posterior horn tear.Tricompartment arthritis. Full-thickness degenerative articular cartilage wear. Joint margin osteophyte formation. Mild medial tibial plateau subchondral edema.
Joint effusion. Synovitis. Loose bodies. Popliteus tendon tenosynovitis.
- PT/OT evaluation-home health
- Case management
- ortho input appreciated- s/p cortisone injection on 03/14
- pain regimen with tylenol and lido patch- dc oxycodone readd trmadol
- baclofen on DC prn
- refusing to go to SNF
- not acute rehab candidate
#benign hypertension
- continue losartan
#atrial fibrillation
- continue diltiazem, Eliquis and sotalol
#hyperlipidemia-not on meds
#anxiety- not on chronic meds- PDMP reviewed should trial antidepressant as OP with PCP
Dispo DC to home with [facility]N and home PT/OT
DVTp-eliquis
Time spent coordinating care, DC planning, review of DC plan of care with resident, transition of care, review of records, med rec/scripts sent electronically, consults, notes, d/w consultants, nursing, family, and CM� 31 mins
Original Note:
Today's Communication/Plan
-
.
Assessment / Plan
Assessment / Plan
1. Ambulatory Dysfunction/R Knee Pain
- Patient to benefit from repeated PT. Patient to be d/c to home with [facility] and PT.
- S/p Cortisone shot by Ortho; no improvement; discussed it may take a few days to feel effect.
- Patient gets sweats with Tylenol;Tramadol did not help.Oxycodone helps but makes the patient loopy.Patient rx Baclofen for d/c.
- Patient seen by Physiatry today; patient is not a candidate for acute care rehab; recommended SNF, however patient strongly refuses SNF. Patient is electing for discharge to home with [facility]/ home PT in lieu of SNF. Dr. Kathleen recommended doing R
Ankle XRay and trial of Baclofen prior to d/c. If patient tolerates, can take Baclofen 5mg TID.
2. Essential hypertension
--Continue losartan
3. paroxysmal Atrial fibrillation
--Continue diltiazem, sotalol, Eliquis
4. Hyperlipidemia
--diet controlled
5. Anxiety
--cont xanax, might need increased dose
6. Headache
- See pain medication above.
code status--FULL CODE
DVT proph--eliquis
Discharge planning: Home with [facility] and Home PT
- Patient refusing SNF
Anticipated Discharge: Today
Subjective/Interval History
-
Date of Service: March 18, 2024
Patient seen and examined while resting comfortably in bed. Patient has no acute complaints this morning, knee pain is unchanged. Patient states the she tolerated Baclofen well but only feels mild improvement. Discussed time course of the medication
and that it should take a few days to take effect.
Objective Data
-
Vital Signs:
Vital Signs
Temp Pulse Resp BP Pulse Ox
98.2 F 66 18 139/71 93
03/18/24 11:18 03/18/24 11:18 03/18/24 11:18 03/18/24 11:18 03/18/24 11:18
I&O
03/17/24 03/18/24 03/19/24
06:59 06:59 06:59
Intake Total 240 / 240
Balance 240 / 240
Review of Systems
-
History Source: Patient
Constitutional: Reports No Symptoms
Respiratory: Reports No Symptoms
Cardiac: Reports No Symptoms
Abdomen/GI: Reports No Symptoms
Musculoskeletal: Reports Joint Pain (right knee)
Neuro: Reports No Symptoms
Physical Exam
-
General: Well Developed, Well Nourished and No Apparent Distress
HEENT: Normocephalic and Atraumatic
Respiratory: Clear to Auscultation
Cardiac: Regular Rhythm and S1/S2
GI: Soft and Nontender
Musculoskeletal: No Clubbing, No Cyanosis, No Edema and Other (right knee exam limited ROM 2/2 pain, no erythema, no ecchymosis, mild joint line tenderness, no warmth)
Skin: Warm and Dry
Neuro: Awake and Alert
Psych: Calm
Data Reviewed
-
Diagnostic Radiology: Report Reviewed by me and Discussed with Patient
[2024-03-18] MEDS: FLUAD (65 yr+) 2024-2025 FORMULA 0.5 ML IM (14:50)
[2024-03-18] MEDS: ROXICODONE 5 MG PO (14:52)
[2024-03-18 15:30] VITALS: BP 122/59
[2024-03-18] MEDS: TYLENOL 1000 MG PO (16:02)
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
--- NOTE | 2024-03-18 16:58 | PTCARENOTE ---
Pt AAO x3, [place]ANG[place] well, OOB in room/to BR; marla well. Pt freq c/o pain in RT knee; prn Roxicodone and Baclofen given with moderate effect. VSS. On room air- pulse ox 96%. Abd large, soft, marla PO. Voids in BR without difficulty. Pt currently
awaiting transportation home after DC.
== END 2024-03-18 17:51 | disposition home health service (06) ==
LOC: 4 EAST ACU 22:35
PROVIDERS: Internal Medicine; Physician Assistant Medical; ADMITTING PHYSICIAN Student in an Organized Health Care Education/Training Program; ATTENDING PHYSICIAN Family Medicine; CONSULT PHYSICIAN Orthopaedic Surgery; CONSULT PHYSICIAN Physical Medicine & Rehabilitation; EMERGENCY PHYSICIAN Emergency Medicine; FAMILY PHYSICIAN Family Medicine
DX: S83.241A Other tear of medial meniscus, current injury, right knee, initial encounter (principal); M65.861 Other synovitis and tenosynovitis, right lower leg; M17.11 Unilateral primary osteoarthritis, right knee; M25.561 Pain in right knee; I48.0 Paroxysmal atrial fibrillation; I10 Essential (primary) hypertension; M47.816 Spondylosis without myelopathy or radiculopathy, lumbar region; M77.31 Calcaneal spur, right foot; M19.071 Primary osteoarthritis, right ankle and foot; M25.761 Osteophyte, right knee; V43.52XD Car driver injured in collision with other type car in traffic accident, subsequent encounter; F32.A Depression, unspecified; M23.41 Loose body in knee, right knee; F41.9 Anxiety disorder, unspecified; X58.XXXA Exposure to other specified factors, initial encounter; R51.9 Headache, unspecified; M16.11 Unilateral primary osteoarthritis, right hip; E78.00 Pure hypercholesterolemia, unspecified; E66.9 Obesity, unspecified; Z23 Encounter for immunization; Z90.49 Acquired absence of other specified parts of digestive tract; Z82.49 Family history of ischemic heart disease and other diseases of the circulatory system; Z79.01 Long term (current) use of anticoagulants; Z60.2 Problems related to living alone; Z91.041 Radiographic dye allergy status; Z91.040 Latex allergy status; Z88.5 Allergy status to narcotic agent; Z88.0 Allergy status to penicillin; Z91.013 Allergy to seafood; Z88.8 Allergy status to other drugs, medicaments and biological substances; Z91.018 Allergy to other foods; Z91.199 Patient's noncompliance with other medical treatment and regimen due to unspecified reason; Z68.30 Body mass index [BMI] 30.0-30.9, adult; Z90.710 Acquired absence of both cervix and uterus
CPT/HCPCS: 20610; J3301; 73502; 73552; 73564; 73590; 73600; 73721; 80048; 83735; 85025; 85027; 85652; 86140; 90662; 96374; 97116; 97163; 97166; 97530; 97535; 99285; G0008; G0378